=== PATIENT | female | born 1995 | race Caucasian/White ===

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

== ENCOUNTER → 2018-05-26 | Outpatient (CLI) | payer OTHER, MEDICAID ==
[~2018-05-26] MED LIST changes: +ACET1TAB43 PO; +DOCU100C37 PO; +FERR325T18 PO; +IBUP-1773 PO
--- NOTE | 2018-05-26 16:56 | Diagnostic Imaging Report ---
INDICATION: 23-year-old female, 33 weeks by last menstrual period. First ultrasound. Anatomy scan. TECHNIQUE: Multiple real-time grayscale images were obtained over the gravid uterus. COMPARISON: None. FINDINGS: There is a single live intrauterine gestation in cephalic presentation. The cervix is not seen due to shadowing from the head. The cerebellum is seen; however, the cisterna magna is not well seen. The placenta is anterior with no findings of previa seen. No hemorrhage is identified. A three-vessel cord is seen. The kidneys are seen. The stomach is seen. The mid to lower spine is seen; however, the upper spine is suboptimally visualized. heart rate is 146 BPM. The urinary bladder is seen. The amniotic fluid index is 20 cm. The four-chamber heart is seen. The intracranial lateral ventricles are suboptimally visualized, but appear normal in size. The cord insertion is seen. Maternal adnexa are not seen. Biometrical measurements are as follows: Biparietal 8.55 cm, age 34 weeks 1 days. Head circumference 30.57 cm, age 34 weeks 1 days. Abdominal circumference 29.75 cm, age 33 weeks 6 days. Femur length 6.93 cm, age 35 weeks 4 days. Sonographic estimate age: 34 weeks 4 days. Sonographic estimated date of delivery: 07/11/2018. Estimated Weight: 2409 gm (+/- 352 gm). LMP percentile: 70%. heart rate: 146 beats per minute. number: 1 of 1. IMPRESSION: 1. Single live intrauterine gestation measuring at 34 weeks and 4 days, within range of the clinical dates. heart rate and amniotic fluid are normal. 2. Anatomic survey is suboptimal due to lie and gestational age. Some of the intracranial structures and upper spine are suboptimally visualized. The visible anatomy is unremarkable. Dictated by: Dictated on workstation # [id number]
== END ==
LOC: RAD 13:46
PROVIDERS: ATTEND Obstetrics & Gynecology
DX: O26.843 Uterine size-date discrepancy, third trimester (principal); Z3A.34 34 weeks gestation of pregnancy
CPT/HCPCS: 76805

== ENCOUNTER 2018-06-19 22:30 | Emergency (ER) | payer OTHER, MEDICAID ==
[~2018-06-19] VITALS: Ht 167.6 cm; Wt 84.4 kg
[2018-06-19 22:57] LABS: BASOPHILS % (AUTO) 0 % (0-10); EOSINOPHILS # (AUTO) 0.1 10^3/uL (0.0-0.3); EOSINOPHILS % (AUTO) 1 % (0-10); HEMATOCRIT 35 % (35-52); HEMOGLOBIN 11.5 G/DL (11.5-16.0); LYMPHOCYTES # (AUTO) 1.8 X 10^3 (1.0-4.0); LYMPHOCYTES % (AUTO) 14 % (12-44); MEAN CORPUSCULAR HEMOGLOBIN 26 PG (25-34); MEAN CORPUSCULAR HGB CONC 33 G/DL (32-36); MEAN CORPUSCULAR VOLUME 80 FL (80-99); MEAN PLATELET VOLUME 10.8 FL (7.4-10.4); MONOCYTES # (AUTO) 0.8 X 10^3 (0.0-1.0); MONOCYTES % (AUTO) 6 % (0-12); NEUTROPHILS # (AUTO) 10.1 X 10^3 (1.8-7.8); NEUTROPHILS % (AUTO) 79 % (42-75); PLATELET COUNT 262 10^3/uL (130-400); RED BLOOD COUNT 4.39 10^6/uL (4.35-5.85); RED CELL DISTRIBUTION WIDTH 13.4 % (10.0-14.5); WHITE BLOOD COUNT 12.8 10^3/uL (4.3-11.0)
[2018-06-19 23:16] LABS: ALANINE AMINOTRANSFERASE 14 U/L (0-55); ALBUMIN 3.7 GM/DL (3.2-4.5); ALKALINE PHOSPHATASE 174 U/L (40-136); BILIRUBIN,TOTAL 0.3 MG/DL (0.1-1.0); BUN/CREATININE RATIO 10; CALCIUM 8.7 MG/DL (8.5-10.1); CARBON DIOXIDE 18 MMOL/L (21-32); CHLORIDE 109 MMOL/L (98-107); CREATININE SERUM 0.62 MG/DL (0.60-1.30); GFR ESTIMATED > 60; GLUCOSE 89 MG/DL (70-105); MAGNESIUM 1.9 MG/DL (1.8-2.4); POTASSIUM 3.5 MMOL/L (3.6-5.0); SODIUM 138 MMOL/L (135-145)
[2018-06-19 23:36] LABS: TSH (THYROID ANALYZER) 2.14 UIU/ML (0.35-4.94)
--- NOTE | 2018-06-20 00:05 | ED Cardiac General ---
History of Present Illness General Chief Complaint: Cardiac/General Problems Stated Complaint: ARRHYTHMIA/37 WKS PREG Nursing Triage Note: INTERMITTANT PALPATATIONS, TACHYCARDIA Allergies and Home Medications Allergies Coded Allergies: No Known Drug Allergies (Unverified , 12/28/10) Home Medications No Active Prescriptions or Reported Meds Past Pyvewuz-Cbujms-Tbeiyo Hx Patient Social History Alcohol Use: Denies Use Recreational Drug Use: No Smoking Status: Never a Smoker 2nd Hand Smoke Exposure: No Recent Foreign Travel: No Contact w/Someone Who Travel: No Recent Infectious Disease Expo: No Recent Hopitalizations: No Immunizations Up To Date Tetanus Booster (TDap): Unknown PED Vaccines UTD: Yes Seasonal Allergies Seasonal Allergies: No Past Medical History Surgeries: Yes (TUBES IN EARS) Ear Surgery, Tonsillectomy Respiratory: No Cardiac: Yes (PAC'S, SVT) Irregular Heartbeat Neurological: No : Yes Expected Date of Delivery: Jun 26, 2018 Last Menstrual Period: Oct 03, 2017 Hx : 2 Hx Para: 1 Reproductive Disorders: No Genitourinary: No Gastrointestinal: No Musculoskeletal: No Endocrine: No HEENT: No Cancer: No Psychosocial: No Integumentary: No Blood Disorders: No Family Medical History Atrial fibrillation 19 FATHER FHx: SVT (supraventricular tachycardia) G8 BROTHER Hypertension 19 FATHER Physical Exam Vital Signs Vital Signs - First Documented 06/19/18 22:35 Temp 97.7 Pulse 102 Resp 21 B/P (MAP) 148/100 (116) Pulse Ox 98 O2 Delivery Room Air Capillary Refill : Less Than 3 Seconds Height, Weight, BMI Height: 5'6.00" Weight: 186lbs. 0.0oz. 84.567453qr; 30.0 BMI Method:Stated Progress/Results/Core Measures Results/Orders Lab Results Laboratory Tests Test 06/19/18 22:50 Range/Units White Blood Count 12.8 H 4.3-11.0 10^3/uL Red Blood Count 4.39 4.35-5.85 10^6/uL Hemoglobin 11.5 11.5-16.0 G/DL Hematocrit 35 35-52 % Mean Corpuscular Volume 80 80-99 FL Mean Corpuscular Hemoglobin 26 25-34 PG Mean Corpuscular Hemoglobin Concent 33 32-36 G/DL Red Cell Distribution Width 13.4 10.0-14.5 % Platelet Count 262 130-400 10^3/uL Mean Platelet Volume 10.8 H 7.4-10.4 FL Neutrophils (%) (Auto) 79 H 42-75 % Lymphocytes (%) (Auto) 14 12-44 % Monocytes (%) (Auto) 6 0-12 % Eosinophils (%) (Auto) 1 0-10 % Basophils (%) (Auto) 0 0-10 % Neutrophils # (Auto) 10.1 H 1.8-7.8 X 10^3 Lymphocytes # (Auto) 1.8 1.0-4.0 X 10^3 Monocytes # (Auto) 0.8 0.0-1.0 X 10^3 Eosinophils # (Auto) 0.1 0.0-0.3 10^3/uL Basophils # (Auto) 0.0 0.0-0.1 10^3/uL Sodium Level 138 135-145 MMOL/L Potassium Level 3.5 L 3.6-5.0 MMOL/L Chloride Level 109 H 98-107 MMOL/L Carbon Dioxide Level 18 L 21-32 MMOL/L Anion Gap 11 5-14 MMOL/L Blood Urea Nitrogen 6 L 7-18 MG/DL Creatinine 0.62 0.60-1.30 MG/DL Estimat Glomerular Filtration Rate > 60 BUN/Creatinine Ratio 10 Glucose Level 89 70-105 MG/DL Calcium Level 8.7 8.5-10.1 MG/DL Corrected Calcium 8.9 8.5-10.1 MG/DL Magnesium Level 1.9 1.8-2.4 MG/DL Total Bilirubin 0.3 0.1-1.0 MG/DL Aspartate Amino Transf (AST/SGOT) 14 5-34 U/L Alanine Aminotransferase (ALT/SGPT) 14 0-55 U/L Alkaline Phosphatase 174 H 40-136 U/L Total Protein 7.0 6.4-8.2 GM/DL Albumin 3.7 3.2-4.5 GM/DL TSH Metcalfe Testing 2.14 0.35-4.94 UIU/ML My Orders Orders - JOCELYNN ZELAYA MD Saline Lock/Iv-Start (06/19/18 22:40) Ekg Tracing (06/19/18 22:40) Monitor-Rhythm Ecg Trace Only (06/19/18 22:40) Cbc With Automated Diff (06/19/18 22:40) Comprehensive Metabolic Panel (06/19/18 22:40) Magnesium (06/19/18 22:40) Thyroid Analyzer (06/19/18 22:40) Vital Signs/I&O 06/19/18 06/20/18 22:35 00:11 Temp 97.7 97.7 Pulse 102 93 Resp 21 17 B/P (MAP) 148/100 (116) 136/88 (104) Pulse Ox 98 97 O2 Delivery Room Air Room Air Blood Pressure Mean: 116 Initial ECG Impression Date: Jun 19, 2018 Initial ECG Impression Time: 22:44 Initial ECG Rate: 89 Initial ECG Rhythm: Normal Sinus Comment Sinus rhythm with PACs. No ST elevation or depression. No abnormal intervals or axis deviation. Departure Impression Primary Impression: Heart palpitations Additional Impressions: Premature atrial contractions Qualified Codes: Z3A.37 - 37 weeks gestation of Disposition: 01 HOME, SELF-CARE Condition: Improved Departure-Patient Inst. Decision time for Depature: 00:01 Referrals: NICKOLAS RODRIGEZ DO (PCP) Primary Care Physician ELISA SNELL MD (Family) Primary Care Physician Patient Instructions: Palpitations Add. Discharge Instructions: If the tachycardia and palpitations return, try the abortive maneuvers with Valsalva or ice to the face. If this does not abort the arrhythmia, return to care. Please contacted Dr. Curry's office tomorrow morning for follow-up. All discharge instructions reviewed with patient and/or family. Voiced understanding. Scripts No Active Prescriptions or Reported Meds Copy Copies To 1: RUBIA CURRY MD Copies To 2: NICKOLAS RODRIGEZ JOSHUA T MD Jun 20, 2018 00:05
[2018-06-20 00:11] VITALS: BP 136/88
== END 2018-06-20 00:11 | disposition home or self-care (01) ==
LOC: EDUNIT# 22:30 → ER 22:31
DX: O99.413 Diseases of the circulatory system complicating pregnancy, third trimester (principal); I49.1 Atrial premature depolarization; Z3A.37 37 weeks gestation of pregnancy; Z90.89 Acquired absence of other organs; Z82.49 Family history of ischemic heart disease and other diseases of the circulatory system
CPT/HCPCS: 36415; 80053; 83735; 84443; 85025; 93005; 93041

== ENCOUNTER 2018-06-22 14:09 | Outpatient (RCR) | payer OTHER, MEDICAID ==
[2018-07-10] MEDS ORDERED: ACHD5005 PO (09:08)
[2018-07-10] MEDS ORDERED: IBUP-844 PO (09:08)
[2018-07-10] MEDS ORDERED: DOCU100C37 PO (09:08)
[2018-07-10] MEDS ORDERED: FERR325T18 PO (09:08)
[2018-07-10] MEDS ORDERED: Benzocaine/Menthol TP (09:08)
== END 2018-09-20 | disposition home or self-care (01) ==
LOC: CARD 14:09
PROVIDERS: ATTEND Internal Medicine Cardiovascular Disease
DX: Z34.01 Encounter for supervision of normal first pregnancy, first trimester (principal); I49.1 Atrial premature depolarization; I45.9 Conduction disorder, unspecified
CPT/HCPCS: 93225; 93226

== ENCOUNTER 2018-07-07 23:04 | Outpatient (CLI) | payer OTHER, MEDICAID ==
[~2018-07-07] VITALS: Ht 167.6 cm; Wt 88.9 kg
--- NOTE | 2018-07-07 22:56 | NUR ---
SAMUEL WADE presented to unit via ambulatory from home, accompanied by family, with c/o CONTRACTIONS. SAMUEL WADE weighed, gowned, voided, and to bed. EFHM and TOCO applied, VS taken. SAMUEL WADE oriented to bed controls, call light, TV, heat, and A/C controls.
[2018-07-07 23:05] VITALS: BP 141/85
--- NOTE | 2018-07-07 23:18 | NUR ---
Call to Dr Birmingham with report, order to watch and recheck cervix in 1 hour, no change pt may go home with labor precautions.
--- NOTE | 2018-07-08 00:15 | NUR ---
SVE performed, no change in cervix and pt denies pain at this time, pt educated on labor precautions and educated when to return to hospital.
--- NOTE | 2018-07-08 00:24 | NUR ---
Pt given verbal and written discharge instruction and ambulated to private vehicle with mother.
[2018-07-08 00:27] VITALS: BP 141/85
--- NOTE | 2018-07-10 19:32 | Physician Query-Final Dx ---
DELICIA DUDLEY 07/10/18 1932: Clinic Account Progress/Dx Physician Query: Please give diagnosis Date of Service Jul 07, 2018 at 23:04 ABELARDO HUDDLESTON MD 07/12/18 0753: Clinic Account Progress/Dx DIAGNOSIS: Diagnosis False labor DELICIA DUDLEY Jul 10, 2018 19:32 ABELARDO HUDDLESTON MD Jul 12, 2018 07:53
== END 2018-07-08 00:24 | disposition home or self-care (01) ==
LOC: LDRP 23:04 → WSo 23:04
PROVIDERS: ATTEND Obstetrics & Gynecology
DX: O47.9 False labor, unspecified (principal)
CPT/HCPCS: 99213

== ENCOUNTER 2018-07-09 20:52 | Inpatient (IN) | payer OTHER, MEDICAID ==
[~2018-07-09] VITALS: Ht 167.6 cm; Wt 89.4 kg
[2018-07-09 21:00] VITALS: BP 140/78
--- NOTE | 2018-07-09 21:00 | NUR ---
SAMUEL WADE presented to unit via from ED, accompanied by mother, with c/o LABOR. SAMUEL WADE weighed, gowned, voided, and to bed. EFHM and TOCO applied, VS taken. SAMUEL WADE oriented to bed controls, call light, TV, heat, and A/C controls.
[2018-07-09] MEDS ORDERED: AMPICILLIN 2,000 MG/20 ML (IV USE) ONE (21:13)
[2018-07-09] MEDS ORDERED: NS (IVPB) 50 ML ONE (21:15)
[2018-07-09] MEDS ORDERED: AMPICILLIN FOR IV USE 2,000 MG in NS (IVPB) 50 ML IV SCH (21:16)
--- OUTSIDE RECORDS SUMMARY | 2018-07-09 21:22 | XMS REPORT ---
Author Author JENNIFER ARGUELLES Organization [facility] Address [address] [place] [address] Care Team Providers Care Proof Technician Name Role Phone JENNIFER ARGUELLES Unavailable PROBLEMS Type Condition ICD9-CM Code [id number] Code Onset Dates Condition Status SNOMED Code Problem Urine ketones R82.4 Active [id number] ALLERGIES No Information ENCOUNTERS Encounter Location Date Diagnosis [facility] [address] [address] Apr, Encounter for test, result unknown Z32.00 [facility] [address] [address] 13 Sep, 2017 [facility] [address] [address] 02 Sep, 2017 Flank pain, acute R10.9 ; Urine ketones R82.4 ; Vaginal discharge N89.8 and PID (acute pelvic inflammatory disease) N73.0 IMMUNIZATIONS No Known Immunizations SOCIAL HISTORY Never Assessed REASON FOR VISIT test (walk-in) PLAN OF CARE VITAL SIGNS MEDICATIONS Unknown Medications RESULTS Name Result Date Reference Range TEST, URINE (IN HOUSE) 2018-05-03 RESULTS Positive Lot # [id number] Control + Exp date 10/2019 PROCEDURES Procedure Date Ordered Result Body Site URINE TEST May 03, 2018 INSTRUCTIONS MEDICATIONS ADMINISTERED No Known Medications MEDICAL (GENERAL) HISTORY Type Description Date Surgical History T&A
--- OUTSIDE RECORDS SUMMARY | 2018-07-09 21:22 | XMS REPORT ---
Author Author WINSTON DAVIS [facility] Address [address] [place] [address] Care Team Providers Care Dry Chain Operator Name Role Phone WINSTON DAVIS Unavailable PROBLEMS Type Condition ICD9-CM Code [id number] Code Onset Dates Condition Status SNOMED Code Problem Urine ketones R82.4 Active [id number] ALLERGIES No Information ENCOUNTERS Encounter Location Date Diagnosis [facility] [address] [facility] [id number] [address] Sep, [facility] [address] [id number] [address] Sep, 2017 Flank pain, acute R10.9 ; Urine ketones R82.4 ; Vaginal discharge N89.8 and PID (acute pelvic inflammatory disease) N73.0 IMMUNIZATIONS No Known Immunizations SOCIAL HISTORY Never Assessed REASON FOR VISIT Lab results PLAN OF CARE VITAL SIGNS MEDICATIONS Unknown Medications RESULTS No Results PROCEDURES No Known procedures INSTRUCTIONS MEDICATIONS ADMINISTERED No Known Medications MEDICAL (GENERAL) HISTORY Type Description Date Surgical History T&A
--- OUTSIDE RECORDS SUMMARY | 2018-07-09 21:22 | XMS REPORT ---
Author Author WINSTON DAVIS Organization [facility] Address [address] [place] [address] Care Team Providers Care Management Liaison Name Role Phone WINSTON DAVIS Unavailable PROBLEMS Type Condition ICD9-CM Code [id number] Code Onset Dates Condition Status SNOMED Code Problem Urine ketones R82.4 Active [id number] ALLERGIES No Known Allergies ENCOUNTERS Encounter Location Date Diagnosis [facility] [address] [facility] [id number] [address] Sep, [facility] [address] [facility] [id number], [place] [address] Sep, Flank pain, acute R10.9 ; Urine ketones R82.4 ; Vaginal discharge N89.8 and PID (acute pelvic inflammatory disease) N73.0 IMMUNIZATIONS Vaccine Route Administration Date Status ROCEPHIN 250 MG (IM) IM Intramuscular September 05, 2017 Administered SOCIAL HISTORY Never Assessed REASON FOR VISIT Fever, headache, lower abd pain and flank pain. been sick since tuesday. [email or web address] PLAN OF CARE Activity Details Follow Up prn Reason: VITAL SIGNS Height 66 in 2017-09-05 Weight 170.0 lbs 2017-09-05 Temperature 101.1 degrees Fahrenheit 2017-09-05 Heart Rate 94 bpm 2017-09-05 Respiratory Rate 20 2017-09-05 BMI 27.44 kg/m2 2017-09-05 Blood pressure systolic 106 mmHg 2017-09-05 Blood pressure diastolic 68 mmHg 2017-09-05 MEDICATIONS Medication Instructions Dosage Frequency Start Date End Date Duration Status Doxycycline Hyclate 100 MG Orally every 12 hrs 1 capsule 12h Sep, Sep, 10 days Active RESULTS No Results PROCEDURES Procedure Date Ordered Result Body Site URINALYSIS, AUTO, W/O SCOPE September 05, 2017 GLUCOSE BLOOD TEST September 05, 2017 ROCEPHIN 250 MG (IM) September 05, 2017 THER/PROPH/DIAG INJ, SC/IM September 05, 2017 Bacterial Vaginosis In House September 05, 2017 No Charge September 05, 2017 CULTURE, BACTERIA, OTHER September 05, 2017 TRICHOMONAS ASSAY W/OPTIC September 05, 2017 INSTRUCTIONS MEDICATIONS ADMINISTERED No Known Medications MEDICAL (GENERAL) HISTORY Type Description Date Surgical History T&A
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
[2018-07-09] MEDS: D5 LR IV SOLUTION 1,000 ML IV SCH (21:30)
[2018-07-09] MEDS ORDERED: MINERAL OIL CONCENTRATE 99.9% 15 ML UDC TOP PRN (21:30)
[2018-07-09 21:48] LABS: BASOPHILS % (AUTO) 0 % (0-10); EOSINOPHILS # (AUTO) 0.1 10^3/uL (0.0-0.3); EOSINOPHILS % (AUTO) 0 % (0-10); HEMATOCRIT 33 % (35-52); HEMOGLOBIN 10.7 G/DL (11.5-16.0); LYMPHOCYTES # (AUTO) 1.8 X 10^3 (1.0-4.0); LYMPHOCYTES % (AUTO) 15 % (12-44); MEAN CORPUSCULAR HEMOGLOBIN 25 PG (25-34); MEAN CORPUSCULAR HGB CONC 33 G/DL (32-36); MEAN CORPUSCULAR VOLUME 78 FL (80-99); MONOCYTES # (AUTO) 0.8 X 10^3 (0.0-1.0); MONOCYTES % (AUTO) 6 % (0-12); NEUTROPHILS # (AUTO) 9.5 X 10^3 (1.8-7.8); NEUTROPHILS % (AUTO) 78 % (42-75); PLATELET COUNT 287 10^3/uL (130-400); WHITE BLOOD COUNT 12.1 10^3/uL (4.3-11.0)
[2018-07-09] MEDS ORDERED: OXYTOCIN/NORMAL SALINE 500 ML IV SCH (22:04)
[2018-07-09 22:10] LABS: ALANINE AMINOTRANSFERASE 15 U/L (0-55); ALBUMIN 3.6 GM/DL (3.2-4.5); ALKALINE PHOSPHATASE 233 U/L (40-136); BILIRUBIN,TOTAL 0.2 MG/DL (0.1-1.0); BUN/CREATININE RATIO 11; CALCIUM 8.8 MG/DL (8.5-10.1); CARBON DIOXIDE 19 MMOL/L (21-32); CHLORIDE 107 MMOL/L (98-107); CREATININE SERUM 0.62 MG/DL (0.60-1.30); GFR ESTIMATED > 60; GLUCOSE 83 MG/DL (70-105); POTASSIUM 3.9 MMOL/L (3.6-5.0); SODIUM 137 MMOL/L (135-145); TOTAL PROTEIN 6.8 GM/DL (6.4-8.2); URIC ACID 3.5 MG/DL (2.6-7.2)
[2018-07-09 22:15] VITALS: BP 132/72
[2018-07-09 22:45] VITALS: BP 131/83
[2018-07-09 23:15] VITALS: BP 127/73
[2018-07-09 23:45] VITALS: BP 139/82
[2018-07-09] MEDS: CATHETER FLUSH 10 ML SYR IV SCH (23:55)
[2018-07-10] VITALS (51 sets, daily range): BP systolic 99–155; BP diastolic 2–89
[2018-07-10] MEDS: AMPICILLIN FOR IV USE 1,000 MG in NS (IVPB) 50 ML IV SCH ×2 (01:15→05:32)
[2018-07-10] MEDS ORDERED: SUFENTA 0.6MCG/ML BUPIVA 0.125 100 ML ONE (01:37)
[2018-07-10] MEDS ORDERED: BUPIVACAINE 0.25% 30 ML (SENSORCAINE) VIAL ONE (02:12)
[2018-07-10] MEDS ORDERED: fentaNYL INJECTION 100 MCG/2 ML AMP ONE (02:12)
--- NOTE | 2018-07-10 02:17 | NUR ---
Linda Mkcay here for epidural placement. Procedure explained, consent reviewed and signed by anesthesia. Questions answered to patient's satisfaction. 0217 Time out taken to verify correct patient/procedure. 0221 Patient up to side of bed, assisted into sitting position. 0222 Betadine prep done x3 and sterile drape applied. Local done, see anesthesia record. Test dose given, see anesthesia record for drug and dosage. Epidural catheter secured in place. Epidural placement complete. 0234 Assisted back into bed, monitors adjusted. Epidural dosed, see anesthesia record. Epidural of Sufenta/Bupvicaine @ 12 cc/hr stated per pump. Patient tolerated procedure well.
[2018-07-10] MEDS ORDERED: LACTATED RINGERS 1,000 ML IV SCH (02:46)
[2018-07-10] MEDS ORDERED: NALOXONE 0.4 MG/ML 1 ML (NARCAN) VIAL IV PRN ×2 (03:00)
[2018-07-10] MEDS ORDERED: EPIDURAL (SUFENTA 0.6MCG/ML BUPIVA 0.125%) 100 ML BAG EPI PRN (03:00)
[2018-07-10] MEDS ORDERED: ONDANSETRON 4 MG/2 ML (SDV) Z0FRAN IV PRN (03:00)
[2018-07-10] MEDS ORDERED: METOCLOPRAMIDE INJ 10 MG/2 ML (REGLAN) IV PRN (03:00)
[2018-07-10] MEDS ORDERED: diphenhydrAMINE 50 MG/ML INJ (BENADRYL) IV PRN (03:00)
[2018-07-10] MEDS ORDERED: ONDANSETRON 4 MG/2 ML (SDV) Z0FRAN ONE (03:05)
[2018-07-10] MEDS: D5 LR IV SOLUTION 1,000 ML IV SCH (06:01)
[2018-07-10] MEDS: CATHETER FLUSH 10 ML SYR IV SCH ×2 (06:20→20:48)
--- NOTE | 2018-07-10 07:00 | NUR ---
REPORT FROM BERNARD LAROSE. Addendum: 07/10/18 at 0929 by KLARISSA TRISTAN RN OLEG LAROSE CORRECT ENTRY.
[2018-07-10] MEDS ORDERED: FLU QUADRIvalent (5+ YOA) 2018-2019 (AFLURIA) 0.5 ML IM ONE (07:15)
[2018-07-10] MEDS ORDERED: LIDOCAINE/EPI 2% 1:200,00 (XYLOCAINE) 10 ML VIAL ONE (08:09)
[2018-07-10] MEDS ORDERED: OXYTOCIN/NORMAL SALINE 500 ML IV SCH (08:37)
[2018-07-10] MEDS ORDERED: MEASLES,MUMPS,RUBELLA 1 EA INJ SQ ONE (08:45)
[2018-07-10] MEDS ORDERED: BENZOCAINE/MENTHOL (DERMOPLAST) 56 ML CAN TP PRN (08:45)
[2018-07-10] MEDS ORDERED: WITCH HAZEL(TUCKS) 40 EA JAR TOP PRN (08:45)
[2018-07-10] MEDS ORDERED: DIBUCAINE (NUPERCAINAL) 1% OINT 30 GM TOP PRN (08:45)
[2018-07-10] MEDS ORDERED: TETANUS,DIPTH,PERTUSS P/F (BOOSTRIX) 0.5 ML VIAL IM ONE (08:45)
[2018-07-10] MEDS ORDERED: HYDROcodone/APAP 5 MG/325 MG (LORTAB) TAB PO PRN (08:45)
--- NOTE | 2018-07-10 09:02 | History & Physical-OB ---
OB - Chief Complaint & HPI Date/Time Date of Admission: Date of Admission: Jul 09, 2018 at 9:18 pm Date seen by a Provider: Jul 10, 2018 Time Seen by a Provider: 08:00 Chief Complaint/History OB-Reason for Admission/Chief: Rupture of Membranes Hx : 2 Hx Para: 1 Expected Date of Delivery: Jul 11, 2018 Gestational Age in Weeks: 39 Gestational Age in Days: 5 Admission Nurse Assessment Rev: Yes History of Labs A pos Antibody neg RI RPR NR HBsAg NR HIV NR GC neg GBS pos Allergies and Home Medications Allergies Coded Allergies: No Known Drug Allergies (Unverified , 07/07/18) Home Medications No Active Prescriptions or Reported Meds Patient Home Medication List Home Medication List Reviewed: Yes OB - History Hx of Present Care: Yes (late PNC at 28 weeks) Ultrasounds: Normal mid trimester US Obstetrical Complications: None Medical Complications: None Delivery History Hx Blood Disorders: No Patient Past Medical History n/a Social History/Family History Recent Infectious Disease Expo: No Alcohol Use: Denies Use Recreational Drug Use: No 2nd Hand Smoke Exposure: No Immunizations Hepatitis A: Yes Hepatitis B: Yes Tetanus Booster (TDap): Unknown OB - Admission Exam Physical Exam Vitals: Vital Signs 07/10/18 07/10/18 05:30 07:00 Temp 96.8 Pulse 103 Resp 16 B/P (MAP) 110/61 (77) Pulse Ox 97 O2 Delivery Room Air HEENT: NCAT Heart: Rhythm Normal Lungs: Clear Abdomen: Gravid Extremities: Normal Reflexes: Normal Cervical Dilatation: 6cm Effacement: 75% Station: -1 Membranes: Ruptured Amniotic Fluid: Clear Heart Rate: 130's Accelerations: Accelerations Present Decelerations: No Decelerations Short Term Variability: Present Fdc Variability: Average (6-25) Contractions on Admission: 6-10 Minutes Apart Intensity: Mild Labs Laboratory Tests Test 07/09/18 21:30 Range/Units White Blood Count 12.1 H 4.3-11.0 10^3/uL Red Blood Count 4.24 L 4.35-5.85 10^6/uL Hemoglobin 10.7 L 11.5-16.0 G/DL Hematocrit 33 L 35-52 % Mean Corpuscular Volume 78 L 80-99 FL Mean Corpuscular Hemoglobin 25 25-34 PG Mean Corpuscular Hemoglobin Concent 33 32-36 G/DL Red Cell Distribution Width 14.0 10.0-14.5 % Platelet Count 287 130-400 10^3/uL Mean Platelet Volume 11.0 H 7.4-10.4 FL Neutrophils (%) (Auto) 78 H 42-75 % Lymphocytes (%) (Auto) 15 12-44 % Monocytes (%) (Auto) 6 0-12 % Eosinophils (%) (Auto) 0 0-10 % Basophils (%) (Auto) 0 0-10 % Neutrophils # (Auto) 9.5 H 1.8-7.8 X 10^3 Lymphocytes # (Auto) 1.8 1.0-4.0 X 10^3 Monocytes # (Auto) 0.8 0.0-1.0 X 10^3 Eosinophils # (Auto) 0.1 0.0-0.3 10^3/uL Basophils # (Auto) 0.0 0.0-0.1 10^3/uL Sodium Level 137 135-145 MMOL/L Potassium Level 3.9 3.6-5.0 MMOL/L Chloride Level 107 98-107 MMOL/L Carbon Dioxide Level 19 L 21-32 MMOL/L Anion Gap 11 5-14 MMOL/L Blood Urea Nitrogen 7 7-18 MG/DL Creatinine 0.62 0.60-1.30 MG/DL Estimat Glomerular Filtration Rate > 60 BUN/Creatinine Ratio 11 Glucose Level 83 70-105 MG/DL Uric Acid 3.5 2.6-7.2 MG/DL Calcium Level 8.8 8.5-10.1 MG/DL Corrected Calcium 9.1 8.5-10.1 MG/DL Total Bilirubin 0.2 0.1-1.0 MG/DL Aspartate Amino Transf (AST/SGOT) 15 5-34 U/L Alanine Aminotransferase (ALT/SGPT) 15 0-55 U/L Alkaline Phosphatase 233 H 40-136 U/L Total Protein 6.8 6.4-8.2 GM/DL Albumin 3.6 3.2-4.5 GM/DL OB - Assessment/Plan/Diagnosis Assessment Assessment: active labor Admission Dx 23 yo @ 39 weeks Active labor SROM GBS pos Admission Status: Inpatient Order (span 2 midnights) Reason for Inpatient Admission: Active labor term GBS pos Plan Plan: Expectant Management NICKOLAS RODRIGEZ DO Jul 10, 2018 9:02 am
--- NOTE | 2018-07-10 09:05 | OB Labor & Delivery Record ---
L&D History Date of Service Date of Service: Jul 10, 2018 History Expected Date of Delivery: Jul 11, 2018 Gestational Age in Weeks: 39 Hx : 2 Hx Para: 1 Complications Events: Routine care Operative Indications (Cesarea: N/A-Vaginal Delivery Intrapartal Events: None L&D Stage1 Stage One Onset of Labor - Date: Jul 09, 2018 Monitors and Tracing Monitor Mode: External Heart Rate: 130 Station: -1 Damascener Variability: Average (6-10) Short Term Variability: Present Presentation: Vertex Vital Signs VS - Last 72 Hours, by Label 07/09/18 07/09/18 07/09/18 07/09/18 21:00 22:15 22:45 23:15 Temp 97.4 Pulse 86 96 90 88 Resp 18 18 16 16 B/P (MAP) 140/78 (98) 132/72 (92) 131/83 (99) 127/73 (91) O2 Delivery Room Air Room Air Room Air Room Air 07/09/18 07/10/18 07/10/18 07/10/18 23:45 00:15 00:45 01:15 Pulse 94 99 93 93 Resp 16 16 16 16 B/P (MAP) 139/82 (101) 128/66 (86) 141/72 (95) 142/78 (99) O2 Delivery Room Air Room Air Room Air Room Air 07/10/18 07/10/18 07/10/18 07/10/18 01:45 02:15 02:25 02:33 Pulse 87 85 91 100 Resp 16 16 16 16 B/P (MAP) 134/68 (90) 135/88 (104) 130/69 (89) 129/89 (102) Pulse Ox 98 97 O2 Delivery Room Air Room Air Room Air Room Air 07/10/18 07/10/18 07/10/18 07/10/18 02:37 02:41 02:43 02:46 Temp 97.0 Pulse 88 86 91 104 Resp 16 16 16 16 B/P (MAP) 118/58 (78) 113/59 (77) 120/56 (77) 121/61 (81) Pulse Ox 97 97 97 97 O2 Delivery Room Air Room Air Room Air Room Air 07/10/18 07/10/18 07/10/18 07/10/18 02:50 02:53 02:56 03:00 Pulse 95 48 99 96 Resp 16 16 16 16 B/P (MAP) 123/65 (84) 128/61 (83) 130/60 (83) 122/59 (80) Pulse Ox 97 97 97 97 O2 Delivery Room Air Room Air Room Air Room Air 07/10/18 07/10/18 07/10/18 07/10/18 03:08 03:10 03:14 03:16 Pulse 92 81 97 87 Resp 16 16 16 16 B/P (MAP) 99/50 (66) 109/59 (76) 118/66 (83) 109/57 (74) Pulse Ox 97 97 97 97 O2 Delivery Room Air Room Air Room Air Room Air 07/10/18 07/10/18 07/10/18 07/10/18 03:23 03:26 03:30 03:52 Temp 97.2 Pulse 90 93 80 88 Resp 16 16 16 16 B/P (MAP) 114/55 (74) 101/52 (68) 114/64 (81) 118/70 (86) Pulse Ox 97 97 97 97 O2 Delivery Room Air Room Air Room Air Room Air 07/10/18 07/10/18 07/10/18 07/10/18 04:10 04:20 04:35 04:55 Pulse 97 96 90 81 Resp 16 16 16 16 B/P (MAP) 123/65 (84) 108/59 (75) 111/59 (76) 105/53 (70) Pulse Ox 97 97 97 97 O2 Delivery Room Air Room Air Room Air Room Air 07/10/18 07/10/18 07/10/18 07/10/18 05:10 05:30 05:50 06:05 Temp 96.8 Pulse 96 96 85 84 Resp 16 16 16 16 B/P (MAP) 100/57 (71) 114/57 (76) 112/56 (74) 112/59 (76) Pulse Ox 97 97 97 97 O2 Delivery Room Air Room Air Room Air Room Air 07/10/18 07/10/18 07/10/18 07/10/18 06:20 06:35 06:45 07:00 Pulse 92 88 97 103 Resp 16 16 16 16 B/P (MAP) 104/55 (71) 103/50 (67) 103/50 (67) 110/61 (77) Pulse Ox 97 97 97 97 O2 Delivery Room Air Room Air Room Air Room Air Rupture of Membranes Spontaneous Ruture of Membrane: Yes Amniotic Membrane Rupture Time: 1999 Amniotic Fluid Membrane Tests: Nitrazine Positive Vaginal Bleeding Description: Normal Show Induction/Anesthesia Epidural Cath Placement - Time: 022 Progress/Notes Pitocin augmentation started at midnight due to dysfunctional contraction pattern, epidural requested by patient at 0300. She progressed to complete and +2 station by my evaluation at 0800. L&D Stage2 Stage Two Stage II Date: Jul 10, 2018 Monitors and Tracing Monitor Mode: External Heart Rate: 130 Monitor Decelerations: Variable [facility] Variability: Average (6-10) Short Term Variability: Present Position: Right Occiput Anterior Presentation: Vertex Cord Descript/Complications Cord Vessel Description: 3 Vessels Delivery Type Infant Delivery Method: Spontaneous Vaginal Anterior Shoulder: Right Episiotomy/Perineal Laceration Laceraction(s)/Extensions: Yes Degree (describe repair) bilateral periurethrals repaired using 3-0 rapide in usual fashion Condition of Delivery 1 minute Comment: 9 5 minute Comment: 9 Notes live male infant weight 7lbs 9oz Condition of Infant Condition of : Living Exam: No Observed Abnormalities Resuscitation Resuscitation: N/A - Spontaneous Resp L&D Stage3 Stage Three Stage III Date: Jul 10, 2018 Pictocin Pitocin Administration mu/min: 12 Pitocin ml/hr: 12 Pitocin Administration Comment: Pitocin wide open at delivery of placenta Placenta Delivery Placenta Delivery: Spontaneous Delivery Summary Summary Estimated blood loss (mL): 300 Attending at delivery: Nickolas Rodrigez DO Condition of Delivery Examined: Cervix Examined, Uterus Explored Post Hemorrhage: No Condition of Mother stable Condition of Infant (s) stable NICKOLAS RODRIGEZ DO Jul 10, 2018 9:05 am
--- NOTE | 2018-07-10 09:07 | Discharge Inst-Women's Service ---
Discharge Inst-Women's Serv Depart Medication/Instructions New, Converted or Re-Newed RX: RX on Chart Final Diagnosis PPD 1 NVD Consults/Follow Up Additional Follow Up: Yes Orders/Referrals Dr. Rodrigez in 6 weeks Activity Activity: Activity as Tolerated Driving Instructions: No Driving for 1 Week NO SMOKING: NO SMOKING Nothing Inside Vagina: No Douching, No [place], No Tampons Diet Discharge Diet: No Restrictions Symptoms to Report to : Bleeding Excessive, Pain Increased, Fever Over 101 Degrees F, Vaginal Bleeding Increase, Questions/Concerns For Any Problems or Questions: Contact Your Physician NICKOLAS RODRIGEZ DO Jul 10, 2018 9:07 am
[2018-07-10] MEDS ORDERED: Benzocaine/Menthol TP (09:08)
[2018-07-10] MEDS ORDERED: FERR325T18 PO (09:08)
[2018-07-10] MEDS ORDERED: IBUP-844 PO (09:08)
[2018-07-10] MEDS ORDERED: ACHD5005 PO (09:08)
[2018-07-10] MEDS ORDERED: DOCU100C37 PO (09:08)
--- NOTE | 2018-07-10 09:09 | NUR ---
2ND BAG PITOCIN UP.
--- NOTE | 2018-07-10 10:15 | NUR ---
FFU/2 MOD LOCHIA NOTED, PERICARE COMPLETED, NEW PAD AND PANTIES ON, PT STILL UNABLE TO MOVE LOWER EXTREMITIES WELL. NEW GOWN ON . PTS S/O AT BEDSIDE SLEEPING. PT DENIES C/O OR QUESTIONS, SCHEDULED MOTRIN GIVEN, DERMAPLAST AND TUCKS PLACED AT BEDSIDE.
[2018-07-10] MEDS: IBUPROFEN 600 MG (MOTRIN) TAB PO SCH ×3 (10:26→23:50)
--- NOTE | 2018-07-10 10:40 | NUR ---
report received from LACHELLE Pierce. care assumed of pt.
--- NOTE | 2018-07-10 10:40 | NUR ---
REPORT TO SHAISTA LAROSE.
--- NOTE | 2018-07-10 11:30 | NUR ---
infant and s/o remain @ side. no c/o's voiced. legs remain heavy.
--- NOTE | 2018-07-10 13:30 | NUR ---
FFu/1. lt rubra noted. no clots expressed. april-care offered. v-pad and panties in place. pt transferred to room 309 via w/c with s/o and infant @ side. call light within reach. no c/o's voiced.
[2018-07-10] MEDS ORDERED: CATHETER FLUSH 10 ML SYR IV SCH (14:00)
--- NOTE | 2018-07-10 17:10 | NUR ---
assisted up to BR with standby assist. tolerated well. +void noted. april-care instructions given, returned demonstration.
[2018-07-10] MEDS: DOCUSATE SODIUM 100 MG (COLACE) CAP PO SCH ×2 (20:47→20:51)
[2018-07-10] MEDS: FERROUS SULF 325 MG (IRON) TAB PO SCH (20:47)
[2018-07-11 03:55] VITALS: BP 110/71
[2018-07-11] MEDS: IBUPROFEN 600 MG (MOTRIN) TAB PO SCH (06:29)
[2018-07-11] MEDS ORDERED: PRENATAL VITAMIN 1 EA TAB PO SCH (07:00)
[2018-07-11 07:06] LABS: BASOPHILS % (AUTO) 0 % (0-10); EOSINOPHILS # (AUTO) 0.1 10^3/uL (0.0-0.3); EOSINOPHILS % (AUTO) 1 % (0-10); HEMATOCRIT 31 % (35-52); HEMOGLOBIN 10.1 G/DL (11.5-16.0); LYMPHOCYTES # (AUTO) 1.9 X 10^3 (1.0-4.0); LYMPHOCYTES % (AUTO) 20 % (12-44); MEAN CORPUSCULAR HEMOGLOBIN 25 PG (25-34); MEAN CORPUSCULAR HGB CONC 32 G/DL (32-36); MEAN CORPUSCULAR VOLUME 79 FL (80-99); MEAN PLATELET VOLUME 11.4 FL (7.4-10.4); MONOCYTES # (AUTO) 0.6 X 10^3 (0.0-1.0); MONOCYTES % (AUTO) 6 % (0-12); NEUTROPHILS # (AUTO) 7.2 X 10^3 (1.8-7.8); NEUTROPHILS % (AUTO) 74 % (42-75); PLATELET COUNT 229 10^3/uL (130-400); RED CELL DISTRIBUTION WIDTH 14.2 % (10.0-14.5); WHITE BLOOD COUNT 9.8 10^3/uL (4.3-11.0)
[2018-07-11] MEDS: CATHETER FLUSH 10 ML SYR IV SCH (07:57)
[2018-07-11 08:00] VITALS: BP 112/68
[2018-07-11] MEDS: FERROUS SULF 325 MG (IRON) TAB PO SCH (08:15)
[2018-07-11] MEDS: DOCUSATE SODIUM 100 MG (COLACE) CAP PO SCH (08:15)
--- NOTE | 2018-07-11 08:34 | Postpartum Progress Note ---
Note Note Day # 1 Subjective: Patient is without complaints. Ambulating, voiding. Tolerating a regular diet without nausea or vomiting. Normal lochia. Pain is well controlled with oral pain medications. Objective: Physical Exam: General - Alert and oriented, no apparent distress Abdomen - Soft, appropriately tender to palpation, non-distended, fundus firm at umbilicus Extremities - no edema, negative Caro's bilaterally Assessment: PPD 1 NVD Acute blood loss anemia Plan: Routine care. Encourage breast feeding. Encourage ambulation. Ferrous sulfate supplementation. Plan for discharge today Vitals - Labs Vital Signs - I&O Vital Signs Date Time Temp Pulse Resp B/P (MAP) Pulse Ox O2 Delivery O2 Flow Rate FiO2 07/11/18 03:55 97.7 81 18 110/71 (84) 98 Room Air 07/10/18 23:45 97.3 99 18 133/58 (83) Room Air 07/10/18 20:51 98.4 100 18 129/2 (44) 97 Room Air 07/10/18 16:25 97.5 93 18 127/79 (95) 98 Room Air 07/10/18 10:04 125 20 118/81 (93) Room Air 07/10/18 09:50 92 20 127/71 (89) Room Air 07/10/18 09:35 93 20 136/55 (82) Room Air 07/10/18 09:29 90 20 130/60 (83) Room Air 07/10/18 09:05 92 20 141/74 (96) Room Air 07/10/18 08:50 98.0 100 20 155/74 (101) Room Air 07/10/18 08:35 148 20 104/57 (73) Room Air I & O 07/11/18 07:00 Intake Total 500 ml Balance 500 ml Labs Laboratory Tests 07/11/18 06:29: White Blood Count 9.8, Red Blood Count 3.97L, Hemoglobin 10.1L, Hematocrit 31L, Mean Corpuscular Volume 79L, Mean Corpuscular Hemoglobin 25, Mean Corpuscular Hemoglobin Concent 32, Red Cell Distribution Width 14.2, Platelet Count 229, Mean Platelet Volume 11.4H, Neutrophils (%) (Auto) 74, Lymphocytes (%) (Auto) 20 , Monocytes (%) (Auto) 6, Eosinophils (%) (Auto) 1, Basophils (%) (Auto) 0, Neutrophils # (Auto) 7.2, Lymphocytes # (Auto) 1.9, Monocytes # (Auto) 0.6, Eosinophils # (Auto) 0.1, Basophils # (Auto) 0.0 NICKOLAS RODRIGEZ DO Jul 11, 2018 8:34 am
--- NOTE | 2018-07-11 09:44 | NUR ---
CM/RISHI spoke with the patient in regards to the SS consult. She states that she thought was but not nearly as far a long as she was, this lead to late care. She reports that they have all need for the baby. She currently participates in WIC with her 2yr old and will continue to do so with new baby. Discussed community programs available and she would like information sent to healthy families. Referral information provided to healthy families.
--- NOTE | 2018-07-11 10:30 | NUR ---
Report received from LACHELLE Tong. care assumed of pt.
[2018-07-11] MEDS ORDERED: IBUPROFEN 600 MG (MOTRIN) TAB PO SCH (12:00)
[2018-07-11 14:15] VITALS: BP 133/93
--- NOTE | 2018-07-11 14:15 | NUR ---
Scheduled Motrin given, see eMar for further. vs taken.
--- NOTE | 2018-07-11 15:02 | NUR ---
was called r/t mother's dismissal. not being dismissed. ok to dismiss mother to border status.
--- NOTE | 2018-07-11 15:05 | NUR ---
rooming in information given to parents. mother dismissed to boarder status until infant dismissed from hospital.
--- NOTE | 2018-07-11 16:56 | Anesthesia-Regional Post-Op ---
Regional Patient Condition Mental Status: Alert, Oriented x3 Circulation: Same as Pre-Op Headache: Absent Sensation: Full Recovery Motor Block: Absent Post Op Complications Complications None Follow Up Care/Instructions Patient Instructions None needed. Anesthesia/Patient Condition Patient is doing well, no complaints, stable vital signs, no apparent adverse anesthesia problems. YUKI LOYOLA DO Jul 11, 2018 16:56
== END 2018-07-11 15:05 | disposition home or self-care (01) | DRG 806 ==
LOC: LDRP 20:52 → WSo 20:52 → LDRP 21:18
PROVIDERS: ADMIT Obstetrics & Gynecology; ATTEND Obstetrics & Gynecology
PROC: 10E0XZZ Delivery of Products of Conception, External Approach (ICD-10-PCS; principal; 2018-07-10)
PROC: 0UQMXZZ Repair Vulva, External Approach (ICD-10-PCS; 2018-07-10)
DX: O99.824 Streptococcus B carrier state complicating childbirth (principal); O09.33 Supervision of pregnancy with insufficient antenatal care, third trimester; O62.4 Hypertonic, incoordinate, and prolonged uterine contractions; O71.82 Other specified trauma to perineum and vulva; O90.81 Anemia of the puerperium; D62 Acute posthemorrhagic anemia; Z37.0 Single live birth; Z3A.39 39 weeks gestation of pregnancy
CPT/HCPCS: 36415; 80053; 84550; 85025; 86850; 86900; 86901; 99212

== ENCOUNTER 2019-08-07 03:05 | Emergency (ER) | payer MEDICAID, OTHER ==
[~2019-08-07 03:05] MED LIST changes: +ACHD5005 PO; +Benzocaine/Menthol TP; +IBUP-844 PO
--- NOTE | 2019-08-07 03:42 | NUR ---
PT NAME CALLED FOR TRIAGE. NO ONE PRESENTED TO STAFF. ASSISTANT WOMENS VOLLEYBALL COACH WAS NOT NOTIFIED OF PT LEAVING.
--- OUTSIDE RECORDS SUMMARY | 2019-08-11 14:53 | XMS REPORT ---
Author Author Faiza GAONA [facility] DENTAL Address Unknown Care Team Providers Care Setup Operator Name Role Phone IRWIN GAONA Unavailable PROBLEMS Type Condition ICD9-CM Code [id number] Code Onset Dates Condition S tatus SNOMED Code Problem Urine ketones R82.4 Active 891014 [id number] ALLERGIES No Information ENCOUNTERS Encounter Location Date Diagnosis [facility] [id number] [place] [id number] Aug, Insect bite (nonvenomous) of unspecified part of head, initial encounter S00.96XA and Bitten or stung by nonvenomous insect and other nonvenomous arthropods, initial encounter W57.XXXA [facility] [id number] [place] [address] Aug, [facility] [address] [id number] Apr, [place] [address] [id number] Apr, Encounter for test, result unk nown Z32.00 [facility] [id number] [place] [address] Sep, [facility] [id number] [place] [phone] Sep, Flank pain, acute R10.9 ; Ur ine ketones R82.4 ; Vaginal discharge N89.8 and PID (acute pelvic inflammatory disease) N73.0 IMMUNIZATIONS No Known Immunizations SOCIAL HISTORY Never Assessed REASON FOR VISIT dental appt PLAN OF CARE VITAL SIGNS MEDICATIONS No Known Medications RESULTS No Results PROCEDURES No Known procedures INSTRUCTIONS MEDICATIONS ADMINISTERED No Known Medications MEDICAL (GENERAL) HISTORY Type Description Date Surgical History T&A Hospitalization History Child 07/2018
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
== END 2019-08-07 03:42 | disposition left against medical advice (07) ==
LOC: EDUNIT# 03:05 → ER 03:07
DX: K08.89 Other specified disorders of teeth and supporting structures (principal)

== ENCOUNTER 2021-08-07 07:37 | Emergency (ER) | payer SELFPAY ==
[~2021-08-07] VITALS: Ht 167.7 cm; Wt 96.2 kg
[2021-08-07] MEDS ORDERED: KETOROLAC 60 MG/2 ML VIAL IM ONE (08:00)
--- NOTE | 2021-08-07 08:02 | ED Back Pain ---
General Chief Complaint: Abdominal/GI Problems Stated Complaint: BACK PAIN Source of Information: Patient Exam Limitations: No Limitations History of Present Illness Date Seen by Provider: Aug 07, 2021 Time Seen by Provider: 07:45 Initial Comments Patient to the ER with mother by private conveyance with chief complaint of nontraumatic low back pain midline radiating down her right buttock down her right leg to the level of her ankle. She woke up with this pain yesterday morning. She has not had any falls from weakness, saddle anesthesia, numbness or tingling, loss of control of bowel or bladder, urinary hesitancy or inability to initiate a bowel movement. No recent trauma. Primary care by Dr. Poole. She says this happened once before and was given muscle relaxants which did nothing for her pain. She took 800 mg of ibuprofen last night. She is not having any dysuria diarrhea constipation or discharge. She has a Mirena IUD in place for 3 years. Allergies and Home Medications Allergies Coded Allergies: No Known Drug Allergies (Unverified , 07/07/18) Patient Home Medication List Home Medication List Reviewed: Yes Cyclobenzaprine HCl (Cyclobenzaprine HCl) 10 Mg Tablet, 10 MG PO Q8H PRN for SPASMS Prescribed by: LULA WEST on 08/07/21 1051 Docusate Sodium (Docusate Sodium) 100 Mg Capsule, 100 MG PO BID PRN for CONSTIPATION-1ST LINE Prescribed by: NICKOLAS RODRIGEZ on 07/10/18 0908 Ferrous Sulfate (Ferrous Sulfate) 325 Mg Tablet, 325 MG PO DAILY@0800 Prescribed by: NICKOLAS RODRIGEZ on 07/10/18 0908 Hydrocodone Bit/Acetaminophen (Lortab 5 Mg Tablet) 1 Tab Tab, 1 TAB PO Q4H PRN for PAIN-MODERATE Prescribed by: NICKOLAS RODRIGEZ on 07/10/18 0908 Hydrocodone/Acetaminophen (Hydrocodone-Acetamin 5-325 mg) 1 Each Tablet, 1 TAB PO Q6H PRN for PAIN-MODERATE (5-7) Prescribed by: LULA WEST on 08/07/21 1053 Ibuprofen (Ibu) 600 Mg Tablet, 600 MG PO Q6H Prescribed by: NICKOLAS RODRIGEZ on 07/10/18 0908 Naproxen (Naprosyn) 500 Mg Tablet, 500 MG PO BID Prescribed by: LULA WEST on 08/07/21 1051 Ondansetron (Ondansetron Odt) 4 Mg Tab.rapdis, 4 MG PO Q6H PRN for NAUSEA/VOMITING Prescribed by: LULA WEST on 08/07/21 1051 [Benzocaine/Menthol] 56 ML AEROSOL, 0 ML TP UD PRN for PAIN- SEE INSTRUCTIONS Prescribed by: NICKOLAS RODRIGEZ on 07/10/18 0908 Review of Systems Constitutional: No chills, No diaphoresis EENTM: No ear discharge, No hearing loss, No ear pain Respiratory: No cough, No short of breath Cardiovascular: No chest pain, No palpitations Gastrointestinal: No abdominal pain, No nausea, No vomiting Genitourinary: No discharge, No dysuria Musculoskeletal: see HPI, back pain; No joint pain All Other Systems Reviewed Negative Unless Noted: Yes Past Rjluszl-Rxmtjf-Tqundj Hx Patient Social History Tobacco Use?: No Use of E-Cig and/or Vaping dev: No Substance use?: No Immunizations Up To Date Tetanus Booster (TDap): Unknown PED Vaccines UTD: Yes Seasonal Allergies Seasonal Allergies: No Past Medical History Surgeries: Yes (TUBES IN EARS) Ear Surgery, Tonsillectomy Respiratory: No Cardiac: Yes (PAC'S, SVT) Irregular Heartbeat Neurological: No Reproductive Disorders: No Genitourinary: No Gastrointestinal: No Musculoskeletal: No Endocrine: No HEENT: No Cancer: No Psychosocial: No Integumentary: No Blood Disorders: No Family Medical History Atrial fibrillation 19 FATHER FHx: SVT (supraventricular tachycardia) G8 BROTHER Hypertension 19 FATHER Physical Exam Vital Signs Vital Signs - First Documented 08/07/21 07:46 Temp 36.3 Pulse 100 Resp 20 B/P (MAP) 146/97 (113) O2 Delivery Room Air Capillary Refill : Height, Weight, BMI Height: 5'6.00" Weight: 197lbs. 0.0oz. 89.236843yd; 31.8 BMI Method:Stated General Appearance: No Apparent Distress, WD/WN HEENT: PERRL/EOMI, Moist Mucous Membranes Neck: Full Range of Motion, Normal Inspection Cardiovascular: Regular Rate, Rhythm, Normal Peripheral Pulses Respiratory: No Accessory Muscle Use, No Respiratory Distress Peripheral Pulses: 2+ Dorsalis Pedis (R), 2+ Left Dors-Pedis (L) Back: Normal Inspection, No CVA Tenderness, Muscle Spasm (Tenderness in the right paraspinous muscle region. Recreation of symptoms by direct palpation), Vertebral Tenderness (Midline low lumbar tenderness to palpation with recreation of symptoms but no deformity or step-off.), Other (No masses over the right lower paraspinous muscle region no rash) Neurologic/Psychiatric: Alert, Oriented x3, No Motor/Sensory Deficits, Normal Mood/Affect, Other (Motor strength 5 out of 5 bilateral lower extremities. Sensation intact bilateral lower extremities symmetric) Skin: Normal Color, Warm/Dry; No Rash Progress/Results/Core Measures Results/Orders My Orders Orders - LULA WEST Ct Lumbar Spine Wo (08/07/21 07:54) Ketorolac Injection (Toradol Injection) (08/07/21 08:00) Hydrocodone/Apap 5/325 Tablet (Lortab 5 (08/07/21 10:30) Medications Given in ED Current Medications Medications Dose Ordered Sig/Sony Route Start Time Stop Time Status Last Admin Dose Admin Ketorolac Tromethamine 60 mg ONCE ONCE IM 08/07/21 08:00 08/07/21 08:01 DC 08/07/21 08:05 60 MG Vital Signs/I&O 08/07/21 07:46 Temp 36.3 Pulse 100 Resp 20 B/P (MAP) 146/97 (113) O2 Delivery Room Air Progress Progress Note #1: Time: 08:10 Progress Note New onset likely lumbago with sciatica but since the pain is now started going below the knee which is never done before we will obtain CT of the lumbar spine to rule out significant pathology. Will encourage follow-up with Dr. Poole. Toradol 60 mg IM. Have encouraged muscle relaxants and steroids. Progress Note #2: Time: 10:47 Progress Note Toradol did not seem to make a big improvement in her pain. She is more comfortable when she moves. CT just do not demonstrates osteoarthritis. Nothing dangerous. We will set her up with a plan for physical therapy, chiropractor, follow-up with primary care, NSAIDs, opiates and steroids. Diagnostic Imaging Diagonstic Imaging: CT Plain Films/CT/US/NM/MRI: other (Lumbar spine) Comments [facility] [place], [place] NAME: SAMUEL WADE [facility] REC#: [id number] PT STATUS: REG ER : 1995 PHYSICIAN: LULA WEST MD ADMIT DATE: 08/07/21/ER Signed Date of Exam:08/07/21 CT LUMBAR SPINE WO PROCEDURE: CT lumbar spine without contrast. TECHNIQUE: Multiple contiguous axial images were obtained through the lumbar spine without the use of intravenous contrast. Sagittal and coronal reformations were then performed. Auto Exposure Controls were utilized during the CT exam to meet ALARA standards for radiation dose reduction. INDICATION: Mid to lower back pain. COMPARISON: None. FINDINGS: No acute fracture or dislocation is seen in the lumbar spine. No focal osseous lesions. Small Schmorl's nodes are seen in the superior endplates of L4 and L5. Alignment is anatomic. Degenerative changes are seen in the lumbar spine with disc osteophyte complexes and facet hypertrophy. No evidence of acute spinal canal stenosis. No high density material is seen within the spinal canal. The paraspinal soft tissues are unremarkable. The included pelvis is unremarkable. IMPRESSION: 1. No acute fracture or dislocation in the lumbar spine. 2. Degenerative changes in the lumbar spine, most prominent at the L5-S1 level. No evidence of acute spinal canal stenosis. Dictated by: Dictated on workstation # [id number] Dict: 08/07/2134 Trans: 08/07/21 0849 [facility] [id number] Interpreted by: STEPAN PEDRO DO Electronically signed by: STEPAN PEDRO DO 08/07/21 0849 Reviewed: Reviewed by Me Departure Impression Primary Impression: Lumbago with sciatica, right side Qualified Codes: M54.41 - Lumbago with sciatica, right side Disposition: 01 HOME, SELF-CARE Condition: Stable Departure-Patient Inst. Decision time for Depature: 10:48 Referrals: ELISA POOLE MD (PCP/Family) Primary Care Physician Patient Instructions: Low Back Pain (DC), Sciatica (DC), Sciatica Exercises Add. Discharge Instructions: Drink plenty of fluids. Naproxen 500 mg twice a day for the next 2 weeks for its anti-inflammatory effect. Prednisone 2 tablets daily for the next 5 days for its anti-inflammatory effect. Topical creams such as icy hot or Biofreeze to help relieve pain. Follow-up with chiropractor or physical therapy as recommended. [facility] physical therapy can be reached at to set up an evaluation. Hydrocodone 1 tablet every 6 hours as necessary for severe pain keeping you from being functional. Return to the ER for loss of control of bowel or bladder, weakness resulting in falls or numbness progressively worsening. Plan to follow-up with primary care doctor for reevaluation in the next couple weeks. All discharge instructions reviewed with patient and/or family. Voiced understanding. Scripts Prednisone (Prednisone) 20 Mg Tab 40 MG PO DAILY for 5 Days, #10 TAB 0 Refills Prov: LULA WEST 08/07/21 Cyclobenzaprine HCl (Cyclobenzaprine HCl) 10 Mg Tablet 10 MG PO Q8H PRN for SPASMS, #15 TAB 0 Refills Prov: LULA WEST 08/07/21 Naproxen (Naprosyn) 500 Mg Tablet 500 MG PO BID for 14 Days, #30 TAB 0 Refills Prov: LULA WEST 08/07/21 Ondansetron (Ondansetron Odt) 4 Mg Tab.rapdis 4 MG PO Q6H PRN for NAUSEA/VOMITING, #8 TAB 0 Refills Prov: LULA WEST 08/07/21 Hydrocodone/Acetaminophen (Hydrocodone-Acetamin 5-325 mg) 1 Each Tablet 1 TAB PO Q6H PRN for PAIN-MODERATE (5-7), #20 TAB 0 Refills Prov: LULA WEST 08/07/21 Work/School Note: Work Release Form Date Seen in the Emergency Department: Aug 07, 2021 Return to Work: Aug 10, 2021 Restrictions: Need Release from Doctor Other Restrictions Listed Below: Do not lift, push, pull more than 20 pounds until 08/17/2021. LULA WEST Aug 07, 2021 08:02
--- NOTE | 2021-08-07 08:49 | Diagnostic Imaging Report ---
PROCEDURE: CT lumbar spine without contrast. TECHNIQUE: Multiple contiguous axial images were obtained through the lumbar spine without the use of intravenous contrast. Sagittal and coronal reformations were then performed. Auto Exposure Controls were utilized during the CT exam to meet ALARA standards for radiation dose reduction. INDICATION: Mid to lower back pain. COMPARISON: None. FINDINGS: No acute fracture or dislocation is seen in the lumbar spine. No focal osseous lesions. Small Schmorl's nodes are seen in the superior endplates of L4 and L5. Alignment is anatomic. Degenerative changes are seen in the lumbar spine with disc osteophyte complexes and facet hypertrophy. No evidence of acute spinal canal stenosis. No high density material is seen within the spinal canal. The paraspinal soft tissues are unremarkable. The included pelvis is unremarkable. IMPRESSION: 1. No acute fracture or dislocation in the lumbar spine. 2. Degenerative changes in the lumbar spine, most prominent at the L5-S1 level. No evidence of acute spinal canal stenosis. Dictated by: Dictated on workstation # [id number]
[2021-08-07] MEDS ORDERED: HYDROcodone/APAP 5 MG/325 MG (LORTAB) TAB PO ONE (10:30)
[2021-08-07] MEDS ORDERED: NAPR-1071 PO (10:51)
[2021-08-07] MEDS ORDERED: CYCL10TA25 PO (10:51)
[2021-08-07] MEDS ORDERED: ACHD5005 PO (10:51)
[2021-08-07] MEDS ORDERED: ONDA4TAB11 PO (10:51)
[2021-08-07 11:12] VITALS: BP 127/68
[2021-08-07] MEDS ORDERED: PRD20T PO (11:14)
== END 2021-08-07 11:12 | disposition home or self-care (01) ==
LOC: EDUNIT# 07:37 → ER 07:38
DX: M54.41 Lumbago with sciatica, right side (principal)
CPT/HCPCS: 72131